=== PATIENT | male | born 1955 | race Caucasian/White ===

== ENCOUNTER 2018-01-17 09:46 | Emergency (ER) | payer OTHER ==
--- NOTE | 2018-01-17 10:00 | EDM.PDOC ---
ED HPI GENERAL MEDICAL PROBLEM - General Stated Complaint: FROM [facility] RIGHT GROIN ENLARGMENT Time Seen by Provider: 01/17/18 10:00 Source of Information: Reports: Patient, Family, RN, RN Notes Reviewed History Limitations: Reports: No Limitations - History of Present Illness INITIAL COMMENTS - FREE TEXT/NARRATIVE: Pt to ER from [facility] this morning with c/o Right groin pain. He states he has had a hernia in this spot in the past, repaired once when he was about 2 years old, and then again about 6 years ago. Patient states the area has been "puffy" for the past few days, but today became very painful. Patient admits to chills, nausea, and SOB this morning with the pain. Denies Chest pain, fever, or vomiting. Patient states he does have diarrhea with different foods, but otherwise normal BMs. Patient states history of diabetes, arthritis, and psoriasis. Onset: Today, Sudden Duration: Intermittent Location: Reports: Abdomen, Other (Right groin) Quality: Reports: Stabbing Severity: Moderate Improves with: Reports: None Worsens with: Reports: None Associated Symptoms: Reports: Fever/Chills, Nausea/Vomiting, Shortness of Breath Right Groin Pain Score (Numeric/FACES): 6 - Related Data Allergies Allergy/AdvReac Type Severity Reaction Status Date / Time No Known Allergies Allergy Verified 08/18/14 12:43 Home Meds: Home Meds Calcipotriene [Calcipotriol] 5 gm MC ASDIRECTED 08/18/14 [History] Exenatide [Byetta] 5 mcg SQ BID 08/18/14 [History] Insulin Glargine,Hum.Rec.Anlog [Lantus Solostar] 50 unit SQ BID 08/18/14 [ History] Omeprazole 20 mg PO DAILY 08/18/14 [History] Rosuvastatin Calcium [Crestor] 2.5 mg PO ASDIRECTED 08/18/14 [History] Triamcinolone Acetonide [Triamcinolone Acetonide 0.1% Crm] 15 gm TOP BID [History] amLODIPine Besylate [Amlodipine Besylate] 10 mg PO DAILY 08/18/14 [History] hydroCHLOROthiazide [Hydrochlorothiazide] 25 mg PO DAILY 08/18/14 [History] metFORMIN HCl [Metformin HCl] 1,000 mg PO BID 08/18/14 [History] Cholecalciferol (Vitamin D3) [Cholecalciferol] 1,000 mg PO DAILY 01/17/18 [ History] Insulin Aspart [Novolog Flexpen] 10 units SQ BEDTIME 01/17/18 [History] Losartan [Cozaar] 50 mg PO DAILY 01/17/18 [History] Salsalate 750 mg PO BID 01/17/18 [History] Social & Family History - Living Situation & Occupation Living situation: Reports: , with Spouse Occupation: Employed ED ROS GENERAL - Review of Systems Review Of Systems: ROS reveals no pertinent complaints other than HPI. ED EXAM, GI/ABD - Physical Exam Exam: See Below Exam Limited By: No Limitations General Appearance: Alert, WD/WN, Anxious, Mild Distress Eyes: Bilateral: Normal Appearance, EOMI Ears: Normal External Exam, Hearing Grossly Normal Nose: Normal Inspection Throat/Mouth: Normal Inspection, Normal Voice, No Airway Compromise Head: Atraumatic, Normocephalic Neck: Normal Inspection, Supple, Non-Tender, Full Range of Motion Respiratory/Chest: No Respiratory Distress, Lungs Clear, Normal Breath Sounds, No Accessory Muscle Use, Chest Non-Tender Cardiovascular: Normal Peripheral Pulses, Regular Rate, Rhythm, No Edema, No Gallop, No JVD, No Murmur, No Rub GI/Abdominal Exam: Soft, No Organomegaly, No Distention, No Abnormal Bruit, No Mass, Pelvis Stable, Tender (RLQ), Abnormal Bowel Sounds (hypoactive) (Male) Exam: Hernia (Right inguinal) Rectal (Males) Exam: Deferred Back Exam: Normal Inspection, Full Range of Motion Extremities: Normal Inspection, Normal Range of Motion, Non-Tender, No Pedal Edema, Normal Capillary Refill Neurological: Alert, Oriented, CN II-XII Intact, Normal Cognition, Normal Gait, Normal Reflexes, No Motor/Sensory Deficits Psychiatric: Normal Affect, Normal Mood, Anxious Skin Exam: Warm, Dry, Intact, Normal Color, No Rash, Other (diabetic ulcers healing on the bottoms of both feet. [facility] Dry and intact, no signs of infection at this time. ) Lymphatic: No Adenopathy Course - Vital Signs Last Recorded V/S: Last Vital Signs Temp 98.4 F 01/17/18 14:01 Pulse 84 01/17/18 14:01 Resp 16 01/17/18 14:01 BP 136/76 01/17/18 14:01 Pulse Ox 100 01/17/18 14:01 - Orders/Labs/Meds Orders: Active Orders 24 hr Category Date Time Status Peripheral IV Care [RC] . DIRECTED Care 01/17/18 10:13 Active CULTURE BLOOD [BC] Stat Lab 01/17/18 11:17 Received CULTURE BLOOD [BC] Stat Lab 01/17/18 11:21 Received UA W/MICROSCOPIC [URIN] Stat Lab 01/17/18 10:36 Ordered Sodium Chloride 0.9% [Saline Flush] Med 01/17/18 10:13 Active 10 ml FLUSH ASDIRECTED PRN Blood Culture x2 Reflex Set [OM.PC] Stat Oth 01/17/18 11:06 Ordered Peripheral IV Insertion Adult [OM.PC] Stat Oth 01/17/18 10:13 Ordered Medication Orders Sodium Chloride (Saline Flush) 10 ml FLUSH ASDIRECTED PRN PRN Reason: Keep Vein Open Last Admin: 01/17/18 10:35 Dose: 10 ml Labs: Laboratory Tests 01/17/18 01/17/18 01/17/18 Range/Units 10:22 10:22 10:36 WBC 19.1 H (5.0-10.0) 10^3/uL RBC 4.28 L (4.6-6.2) 10^6/uL Hgb 13.8 L D (14.0-18.0) g/dL Hct 38.8 L (40.0-54.0) % MCV 90.7 D (80-100) fL MCH 32.2 (27.0-34.0) pg MCHC 35.6 H (33.0-35.0) g/dL Plt Count 236 D (150-450) 10^3/uL Neut % (Auto) 79.4 H (42.2-75.2) % Lymph % (Auto) 5.9 L (20.5-50.1) % Rolette % (Auto) 12.0 H (2-8) % Eos % (Auto) 2.2 (1.0-3.0) % Baso % (Auto) 0.5 (0.0-1.0) % Sodium 140 (135-145) mmol/L Potassium 4.5 (3.6-5.0) mmol/L Chloride 104 (101-111) mmol/L Carbon Dioxide 26.0 (21.0-31.0) mmol/L Anion Gap 14.5 BUN 18 (7-18) mg/dL Creatinine 1.2 (0.6-1.3) mg/dL Est Cr Clr Drug Dosing 70.28 mL/min Estimated GFR (MDRD) > 60 BUN/Creatinine Ratio 15.00 Glucose 160 H (74-105) mg/dL Lactic Acid (0.5-2.2) mmol/L Calcium 9.5 (8.4-10.2) mg/dl Total Bilirubin 0.7 (0.2-1.0) mg/dL AST 30 (10-42) IU/L ALT 26 (10-60) IU/L Alkaline Phosphatase 69 (42-121) IU/L Total Protein 7.7 (6.7-8.2) g/dl Albumin 4.1 (3.2-5.5) g/dl Globulin 3.6 Albumin/Globulin Ratio 1.14 Urine Color Yellow (YELLOW) Urine Appearance Clear (CLEAR) Urine pH 5.0 (5.0-9.0) Ur Specific [place] 1.020 (1.005-1.030) Urine Protein 100 H (NEGATIVE) Urine Glucose (UA) 500 H (NEGATIVE) Urine Ketones Negative (NEGATIVE) Urine Occult Blood Negative (NEGATIVE) Urine Nitrite Negative (NEGATIVE) Urine Bilirubin Negative (NEGATIVE) Urine Urobilinogen 0.2 (0.2-1.0) mg/dL Ur Leukocyte Esterase Negative (NEGATIVE) Urine RBC Not seen /HPF Urine WBC Not seen (0-5/HPF) /HPF Ur Epithelial Cells Rare /HPF Urine Bacteria Rare (0-FEW/HPF) /HPF 01/17/18 Range/Units 11:17 WBC (5.0-10.0) 10^3/uL RBC (4.6-6.2) 10^6/uL Hgb (14.0-18.0) g/dL Hct (40.0-54.0) % MCV (80-100) fL MCH (27.0-34.0) pg MCHC (33.0-35.0) g/dL Plt Count (150-450) 10^3/uL Neut % (Auto) (42.2-75.2) % Lymph % (Auto) (20.5-50.1) % Ro[place] % (Auto) (2-8) % Eos % (Auto) (1.0-3.0) % Baso % (Auto) (0.0-1.0) % Sodium (135-145) mmol/L Potassium (3.6-5.0) mmol/L Chloride (101-111) mmol/L Carbon Dioxide (21.0-31.0) mmol/L Anion Gap BUN (7-18) mg/dL Creatinine (0.6-1.3) mg/dL Est Cr Clr Drug Dosing mL/min Estimated GFR (MDRD) BUN/Creatinine Ratio Glucose (74-105) mg/dL Lactic Acid 1.7 (0.5-2.2) mmol/L Calcium (8.4-10.2) mg/dl Total Bilirubin (0.2-1.0) mg/dL AST (10-42) IU/L ALT (10-60) IU/L Alkaline Phosphatase (42-121) IU/L Total Protein (6.7-8.2) g/dl Albumin (3.2-5.5) g/dl Globulin Albumin/Globulin Ratio Urine Color (YELLOW) Urine Appearance (CLEAR) Urine pH (5.0-9.0) Ur Specific [place] (1.005-1.030) Urine Protein (NEGATIVE) Urine Glucose (UA) (NEGATIVE) Urine Ketones (NEGATIVE) Urine Occult Blood (NEGATIVE) Urine Nitrite (NEGATIVE) Urine Bilirubin (NEGATIVE) Urine Urobilinogen (0.2-1.0) mg/dL Ur Leukocyte Esterase (NEGATIVE) Urine RBC /HPF Urine WBC (0-5/HPF) /HPF Ur Epithelial Cells /HPF Urine Bacteria (0-FEW/HPF) /HPF Meds: Medications Generic Name Dose Route Start Last Admin Trade Name Freq PRN Reason Stop Dose Admin Sodium Chloride 10 ml 01/17/18 10:13 01/17/18 10:35 Saline Flush FLUSH 10 ml ASDIRECTED PRN Administration Keep Vein Open Discontinued Medications Generic Name Dose Route Start Last Admin Trade Name Freq PRN Reason Stop Dose Admin Piperacillin Sod/Tazobactam 100 mls @ 200 mls/hr 01/17/18 13:45 01/17/18 13: 57 Sod 3.375 gm/ Sodium Chloride IV 01/17/18 14:14 200 mls/hr ONETIME ONE Administration Iopamidol 100 ml 01/17/18 11:09 01/17/18 11:34 Isovue-300 (61%) IVPUSH 01/17/18 11:10 100 ml ONETIME ONE Administration - Radiology Interpretation Free Text/Narrative:: Abdomen/Pelvis CT: Abnormal prostate gland. Bilateral inguinal lymphadenopathy. Hydroceles. Cholecystectomy. See Rad report - Re-Assessments/Exams Free Text/Narrative Re-Assessment/Exam: 01/17/18 14:21 Began process of transfer to [facility] at 1230. Discussed patient case with Dr. Marx, and FREDDIE Hendrix. Dr. Marx decided to decline transfer of the patient and asked that the patient be transferred to [facility] in [place]. Patient refuses to go to [facility]. States he will only go to the [place]. Also discussed with the patient IV antibiotics as inpatient here at . He declines and states he will go to [facility] [place]. [facility] [place] [facility] gave report to [facility] in the ER. Patient IV antibiotics were completed and patient discharged to travel via POV to [facility]. Departure - Departure Time of Disposition: 14:25 Disposition: Home, Self-Care 01 Condition: Fair Clinical Impression: Prostatitis, acute, Lymphadenopathy, inguinal Hydrocele Qualifiers: Hydrocele type: unspecified Qualified Code(s): N43.3 - Hydrocele, unspecified - Discharge Information *PRESCRIPTION DRUG MONITORING PROGRAM REVIEWED*: No *COPY OF PRESCRIPTION DRUG MONITORING REPORT IN PATIENT MARLYN: No Instructions: Hydrocele, Adult, Lymphadenopathy, Prostatitis, [id number] Referrals: PCP,None [Primary Care Provider] - Forms: ED Department Discharge Additional Instructions: Follow up with the [place] ER. - My Orders Last 24 Hours: My Active Orders 01/17/18 10:13 Peripheral IV Care [RC] . DIRECTED Sodium Chloride 0.9% [Saline Flush] 10 ml FLUSH ASDIRECTED PRN Peripheral IV Insertion Adult [OM.PC] Stat 01/17/18 10:36 UA W/MICROSCOPIC [URIN] Stat 01/17/18 11:06 Blood Culture x2 Reflex Set [OM.PC] Stat 01/17/18 11:17 CULTURE BLOOD [BC] Stat 01/17/18 11:21 CULTURE BLOOD [BC] Stat - Assessment/Plan Last 24 Hours: My Active Orders 01/17/18 10:13 Peripheral IV Care [RC] . DIRECTED Sodium Chloride 0.9% [Saline Flush] 10 ml FLUSH ASDIRECTED PRN Peripheral IV Insertion Adult [OM.PC] Stat 01/17/18 10:36 UA W/MICROSCOPIC [URIN] Stat 01/17/18 11:06 Blood Culture x2 Reflex Set [OM.PC] Stat 01/17/18 11:17 CULTURE BLOOD [BC] Stat 01/17/18 11:21 CULTURE BLOOD [BC] Stat
[2018-01-17] MEDS: Sodium Chloride 0.9% 10 ML Syringe FLUSH PRN (10:35)
[2018-01-17 10:47] LABS: ANION GAP 14.5; CHLORIDE,CL 104 mmol/L (101-111); SODIUM,NA 140 mmol/L (135-145)
[2018-01-17] MEDS: Iopamidol 612 MG/ML 100 ML Bottle IVPUSH ONE (11:34)
[2018-01-17] MEDS: Piperacillin/Tazobactam 3.375 GM in Sodium Chloride 0.9% 100 ML IV ONE (13:57)
[2018-01-17 14:02] VITALS: BP 136/76
--- NOTE | 2018-01-17 14:04 | CT ---
Clinical history: 62-year-old hypertensive, diabetic 230 pound male with WBC 19,100 being evaluated [facility] emergency department with right groin pain. History of 2 previous right inguinal hernia surgeries. Scan technique: Volume acquisition of data emergency CT scan abdomen and pelvis without oral contrast but during the intravenous ministration 100 cc nonionic Isovue contrast (2.5 cc/s via injector) whil e the patient was lying supine on the Siemens multislice scanner [facility]. All data archived in the PAC system for storage, reformatting axial/sagittal/coronal italo elsie and study. Interpretation: Abnormal. 1. Prostate gland is enlarged midline and inhomogeneously dense. Abnormal scrotal fluid accumulation (hydroceles). 2. Enlarged lymph nodes concentrated in both groins (right greater than left). *No sign of inguinal o r femoral hernia. 3. Cholecystectomy. Unenhanced liver, stomach, spleen, pancreas, adrenal glands and kidneys unremarka ble. No sign of renal cortical mass lesion, pyelonephritis, nephrolithiasis or obstructive uropathy. Symmetrically urinary bladder. No stones. 4. Diverticula scattered across colon without associated signs of inflammatory "dirty" fat or abscess i.e. pham colonic diverticulosis. 5. Chronic severe lower lumbar L5-S1 disc disease with associated hypertrophic arthritic changes of t he spine. No sign of paraspinal abscess or osteomyelitis this patient with symmetric normal-appearing symmetric normal-appearing psoas shadows. 6. No pelvic or abdominal mass lesion, mesenteric or retroperitoneal lymphadenopathy, signs of mechan ical bowel obstruction, ascites or free intraperitoneal air. 7. Lung bases clear. Normal cardiac silhouette. No pericardial effusion. CONCLUSION: Abnormal prostate gland. Bilateral inguinal lymphadenopathy. Hydroceles. Cholecystectomy.
== END 2018-01-17 14:37 | disposition home or self-care (01) ==
LOC: DL.ED 09:46
DX: N41.0 Acute prostatitis (principal); N43.3 Hydrocele, unspecified; R59.0 Localized enlarged lymph nodes; E11.621 Type 2 diabetes mellitus with foot ulcer; Z90.49 Acquired absence of other specified parts of digestive tract; Z79.4 Long term (current) use of insulin; Z79.899 Other long term (current) drug therapy
CPT/HCPCS: 36415; 74177; 80053; 81001; 83605; 85025; 87040; 96365; 99284; J2543; J7050; Q9967